=== PATIENT | male | born 1965 | race Two or more races ===

== ENCOUNTER 2023-02-03 16:38 | Emergency (ER) | payer OTHER ==
[~2023-02-03] VITALS: Ht 170.2 cm; Wt 65.2 kg
[2023-02-03] MEDS ORDERED: KETOROLAC TROMETH 60MG/2ML VIAL IM ONE (18:00)
[2023-02-03 18:58] LABS: Basophils # (auto) 0.1 10 ^3/uL (0-0.2); Basophils % (auto) 0.5 % (0.0-2.0); Eosinophils # (auto) 0.2 10 ^3/uL (0-0.8); Eosinophils % (auto) 1.7 % (0.0-7.0); Hematocrit 45.8 % (41.0-53.0); Hemoglobin 15.3 g/dL (13.5-17.5); Lymphocytes % (auto) 24.5 % (10.0-50.0); Mean Corpuscular Hemoglobin 31.5 pg (28.0-32.0); Mean Corpuscular Hgb Conc. 33.4 g/dL (32.0-36.0); Mean Corpuscular Volume 94.5 fL (80.0-100.0); Monocytes # (auto) 0.9 10 ^3/uL (0-1.3); Monocytes % (auto) 7.5 % (0.0-12.0); Neutrophils % (auto) 65.8 % (37.0-80.0); Nucleated Red Blood Cells % 0.1 %; Red Blood Cells 4.84 10^6/uL (4.5-5.90); Red Cell Distribution Width 13.9 % (11.8-14.3); White Blood Cell 12.2 10^3/uL (4.4-10.8)
[2023-02-03 19:16] LABS: INR 0.98 (0.9-1.15); Partial Thromboplastin Time 28.5 SEC (24.5-34.5); Prothrombin Time 10.3 sec (9.3-11.8)
[2023-02-03 19:17] LABS: Albumin 4.1 g/dL (3.4-5.0); BUN/Creatinine Ratio 15.1 (10.0-20.0); Calcium 8.9 mg/dL (8.5-10.1); Magnesium 2.4 mg/dL (1.6-2.6)
[2023-02-03 19:19] LABS: Bilirubin, Total 0.3 mg/dL (0.2-1.0); Total Protein 7.7 g/dL (6.4-8.2)
[2023-02-03] MEDS ORDERED: DOXYCYCLINE 100 MG TAB/CAP PO ONE (20:00)
[2023-02-03] MEDS ORDERED: cefTRIAXone W LIDOCAINE 500 MG IM IM ONE (20:00)
[2023-02-03] MEDS ORDERED: cefTRIAXone SOD 500 MG VL IM ONE (20:15)
[2023-02-03 20:35] VITALS: PULSE 55; RESP 18; O2SAT 95
[2023-02-03] MEDS ORDERED: IBUP-1456 PO (20:37)
[2023-02-03] MEDS ORDERED: DOXY-286 PO (20:37)
[2023-02-03 20:42] VITALS: BP 137/77; PULSE 55; RESP 18; TEMP 98.1; O2SAT 99
== END 2023-02-03 20:47 | disposition home or self-care (01) ==
LOC: ER 16:38
DX: N45.1 Epididymitis (principal); E78.5 Hyperlipidemia, unspecified
CPT/HCPCS: 36415; 74176; 76870; 80053; 83605; 83690; 83735; 84484; 85025; 85610; 85730; 87040; 96372; 99285; J0696; J1885